=== PATIENT | female | born 1995 | race Caucasian/White ===

== ENCOUNTER 2018-12-18 18:31 | Observation (INO) | payer OTHER ==
--- NOTE | 2018-12-18 19:33 | C.PDOC ---
History Of Present Illness Patient is a 23 year old female, with a PMHx of asthma, crohn's disease on humira, and c. diff, last abx were 2 week ago, who presents to the ED for intermittent fevers and watery stool for the past 7 days. Patient also notes epigastric abdominal pain and notes she was sent by her gastroenterolgist Dr. Potts for further evaluation and workup. She notes epigastric abdominal pain is a throbbing. She denies any nausea, vomiting, chills, night sweats, cough, cold, congestion, rash, neck stiffness, headaches, urinary symptoms, or vaginal discharge. Time Seen by Provider: 12/18/18 19:28 Chief Complaint (Nursing): Abdominal Pain History Per: Patient History/Exam Limitations: no limitations Onset/Duration Of Symptoms: Days (2) Current Symptoms Are (Timing): Still Present Location Of Pain/Discomfort: Epigastric Associated Symptoms: Fever, Diarrhea Recent travel outside of the [place]: No Additional History Per: Patient Past Medical History Reviewed: Historical Data, Nursing Documentation, Vital Signs Vital Signs: Last Vital Signs Temp 98.4 F 12/18/18 18:33 Pulse 92 H 12/18/18 18:33 Resp 18 12/18/18 18:33 BP 127/82 12/18/18 18:33 Pulse Ox 99 12/18/18 18:33 - Medical History PMH: Asthma, Crohn's Disease Surgical History: No Surg Hx Family History: States: No Known Family Hx - Social History Hx Alcohol Use: No Hx Substance Use: No - Immunization History Hx Tetanus Toxoid Vaccination: No Hx Influenza Vaccination: Yes Review Of Systems Constitutional: Positive for: Fever. Negative for: Chills, Sweats, Weakness Eyes: Negative for: Pain, Conjunctivae Inflammation ENT: Negative for: Ear Pain, Ear Discharge, Nose Congestion, Mouth Swelling, Throat Pain Cardiovascular: Negative for: Chest Pain Respiratory: Negative for: Cough Gastrointestinal: Positive for: Abdominal Pain (epigastric ), Diarrhea. Negative for: Nausea, Vomiting, Constipation, Melena Genitourinary: Negative for: Dysuria, Frequency, Hematuria, Vaginal Discharge Musculoskeletal: Negative for: Neck Pain (stiffness) Skin: Negative for: Rash Neurological: Negative for: Headache Physical Exam - Physical Exam Appears: Well, Non-toxic, No Acute Distress Skin: Warm, Dry Head: Normacephalic Eye(s): bilateral: Normal Inspection, PERRL, EOMI Ear(s): Bilateral: Normal Nose: Normal Oral Mucosa: Moist Tongue: Normal Appearing Lips: Normal Appearing Teeth: Normal Dentition Gingiva: Normal Appearing Throat: Normal, No Erythema, No Exudate Neck: Trachea Midline, Supple, Other (no meningeal signs) Chest: Symmetrical Cardiovascular: Rhythm Regular, No Friction Rub Respiratory: No Rales, No Rhonchi, No Wheezing Gastrointestinal/Abdominal: Soft, Tenderness (epigastric), No Distention Back: Normal Inspection, No CVA Tenderness, No Vertebral Tenderness Extremity: Normal ROM, No Tenderness, No Pedal Edema, No Calf Tenderness, No Swelling Extremity: Bilateral: Normal Color And Temperature Pulses: Left Dorsalis Pedis: Normal, Right Dorsalis Pedis: Normal Neurological/Psych: Oriented x3, Normal Speech, Normal Cognition Gait: Steady ED Course And Treatment - Laboratory Results Result Diagrams: 12/18/18 20:23 12/18/18 20:23 O2 Sat by Pulse Oximetry: 99 (on RA) Pulse Ox Interpretation: Normal Medical Decision Making Medical Decision Making: Patient is a 23 year old female, with a PMHx of asthma, crohn's disease, and c. diff, last abx were 1 week ago, who presents to the ED for intermittent fevers and watery stool for the past 2 days. Epigastic abdominal pain without RUQ pain in the setting of crohns warrants CT. No dark or bloody stool. Plan: CAT A&P VBG EKG Labs CXR Urinalysis Impression: pancreatitis vs crohn's flare 1153 labs largely unremarkable no fever in ED CT w/ mild enteritis, no fistula tract noted or colitis. consulted Connor fellow on for dr. Potts: to see in AM, to be placed in obs Consulted Dr. Daniel for admission: to obs to his service pt in NAD, stable for obs admission Disposition - Disposition Disposition Time: 23:53 Condition: STABLE - Clinical Impression Clinical Impression: Enteritis - Scribe Statement The provider has reviewed the documentation as recorded by the Shankar Hodge All medical record entries made by the Yobaniibcat were at my direction and personally dictated by me. I have reviewed the chart and agree that the record accurately reflects my personal performance of the history, physical exam, medical decision making, and the department course for this patient. I have also personally directed, reviewed, and agree with the discharge instructions and disposition.
[2018-12-18 20:30] LABS: BASO # 0.1 K/uL (0.0-0.2); EOS % 0.5 % (0.0-4.0); HEMOGLOBIN 12.3 g/dL (11.0-16.0); LYMPH # 2.6 K/uL (1.0-4.3); MEAN CELL VOLUME 81.6 fL (81.0-99.0); MEAN CORPUSCULAR HEMOGLOBIN 26.9 pg (27.0-31.0); MEAN PLATELET VOLUME 8.1 fL (7.2-11.7); MONO # 0.8 K/uL (0.0-0.8); MONO % 10.5 % (0.0-10.0); NEUT # 4.1 K/uL (1.8-7.0); RBC 4.59 Mil/uL (3.80-5.20); WHITE BLOOD COUNT 7.6 K/uL (4.8-10.8)
[2018-12-18 20:33] LABS: VENOUS BLOOD GAS BASE EXCESS -2.2 mmol/L (0.0-2.0); VENOUS BLOOD GAS PCO2 37 mmHg (40-60); VENOUS BLOOD GAS PO2 25 mm/Hg (30-55); VENOUS BLOOD PH 7.39 (7.32-7.43)
[2018-12-18 20:43] LABS: ALB/GLOB RATIO 1.4 (1.0-2.1); ALBUMIN 4.6 g/dL (3.5-5.0); BLOOD UREA NITROGEN 14 mg/dL (7-17); CALCIUM 9.7 mg/dl (8.6-10.4); GFR NON-AFRICAN AMERICAN > 60
[2018-12-18 20:44] LABS: ALT/SGPT 17 U/L (9-52); AST/SGOT 47 U/L (14-36)
[2018-12-18] MEDS ORDERED: Iohexol 300 100 ML IJ ONE (21:13)
[2018-12-18] MEDS ORDERED: Sodium Chloride 0.9% 1,000 ML IV ONE (23:13)
[2018-12-18 23:45] LABS: SQUAMOUS EPITHIAL 6 /hpf (0-5); URINE BACTERIA RARE (<OCC); URINE BILIRUBIN NEGATIVE (NEGATIVE); URINE BLOOD NEGATIVE (NEGATIVE); URINE CLARITY Hazy (Clear); URINE COLOR Yellow (YELLOW); URINE GLUCOSE (UA) NORMAL (Normal); URINE LEUKOCYTE ESTERASE NEG Leu/uL (Negative); URINE PROTEIN 1+ mg/dL (NEGATIVE); URINE UROBILINOGEN NORMAL mg/dL (0.2-1.0)
[2018-12-18] MEDS ORDERED: Sodium Chloride 0.9% 1,000 ML ONE (23:57)
[2018-12-18] MEDS ORDERED: Morphine 4 MG/ML VIAL ONE (23:57)
[2018-12-19] MEDS ORDERED: Home Med 1 UNIT (Acetaminophen [Tylenol] 650 MG) PO PRN (00:11)
[2018-12-19] MEDS ORDERED: HYDROmorphone 1 mg/ml ISec IVP PRN (00:19)
[2018-12-19] MEDS: metroNIDAZOLE IV 500 mg/100 ml 500 MG/100 ML BAG IVPB SCH ×3 (00:40→16:55)
[2018-12-19] MEDS ORDERED: metroNIDAZOLE IV 500 mg/100 ml 500 MG/100 ML BAG ONE (00:54)
[2018-12-19] MEDS: Ciprofloxacin 400mg/200ml D5W 400 MG/200 ML BAG IVPB SCH ×2 (01:58→12:18)
[2018-12-19] MEDS ORDERED: Ciprofloxacin 400mg/200ml D5W 400 MG/200 ML BAG IVPB ONE (02:05)
--- NOTE | 2018-12-19 07:48 | CP.PCM.PN ---
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 Patient states she was sent by her GI doctor (Dr. Potts). NO overnight events reported. Patient did report some abdominal pain and loose stool today. She also states that she has to strain when urinating. She denies any blood in the stool or melena. Patient denies any fevers, chills, Chest pain, SOB, nausea or vomiting. Patient continued to ask for dilaudid for abdominal pain although she resting comfortable in bed. Patient is suspicious f or med-seeking behavior. Objective - Vital Signs/Intake and Output Vital Signs (last 24 hours): Temp Pulse Resp BP Pulse Ox 98.7 F 90 18 91/58 L 99 12/19/18 06:10 12/19/18 06:10 12/19/18 06:10 12/19/18 06:10 12/19/18 06:10 - Medications Medications: Current Medications Duloxetine HCl (Cymbalta) 20 mg PO DAILY [facility] Gabapentin (Neurontin) 300 mg PO BID [facility] Home Med (Acetaminophen [Tylenol]) 650 mg PO Q4 PRN PRN Reason: Fever >100.4 F Home Med (Adalimumab [Humira]) 40 mg SC QWK [facility] Home Med (Telmisartan [Telmisartan]) 20 mg PO DAILY [facility] Hydromorphone HCl (Dilaudid) 1 mg IVP Q4H PRN PRN Reason: Pain, moderate (4-7) Last Admin: 12/19/18 04:16 Dose: 1 mg Ciprofloxacin (Cipro 400mg/200ml Dsw) 400 mg in 200 mls @ 133 mls/hr IVPB Q12H [facility]; Protocol Last Admin: 12/19/18 01:58 Dose: 133 mls/hr Metronidazole (Flagyl) 500 mg in 100 mls @ 100 mls/hr IVPB Q8H [facility]; Protocol Last Admin: 12/19/18 00:40 Dose: 100 mls/hr Sodium Chloride (Sodium Chloride 0.9%) 1,000 mls @ 100 mls/hr IV .Q10H [facility] Pantoprazole Sodium (Protonix Ec Tab) 40 mg PO DAILY [facility] Prochlorperazine Edisylate (Compazine) 5 mg PO PRN PRN PRN Reason: Nausea/Vomiting - Labs Labs: 12/18/18 20:23 12/18/18 20:23 - Constitutional Appears: Well, Non-toxic, No Acute Distress - Head Exam Head Exam: ATRAUMATIC, NORMAL INSPECTION, NORMOCEPHALIC - Eye Exam Eye Exam: EOMI. absent: Scleral icterus - ENT Exam ENT Exam: Mucous Membranes Moist - Respiratory Exam Respiratory Exam: Clear to Ausculation Bilateral, NORMAL BREATHING PATTERN. absent: Accessory Muscle Use - Cardiovascular Exam Cardiovascular Exam: RRR, +S1, +S2 - GI/Abdominal Exam GI & Abdominal Exam: Soft, Tenderness (RLQ/LLQ (Mild) ), Normal Bowel Sounds. absent: Distended, Firm, Guarding, Rigid, Rebound - Extremities Exam Extremities Exam: Normal Capillary Refill. 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 Plan: Diarrhea/Abd Pain/Fevers/Crohns Ddx: Crohns Flare, C.Fiff, IBS Consults Gastroenterology(Dr. Nancy Potts), Recs Appreciated Labs: Stool Studies, F/U Mgmt: Metronidazole 500mg IVP Q8H Ciprofloxacin 400mg Q12 IVP NS @ 100mls/hr Tylenol PRN for Fever Tramadol 25mg PO TID PRN (Avoid heavy narcotics) Compazine 5mg PO TID PRN Diflucan 200mg QFridays Humira [id number](On Tuesday) CLD, Advanced as Tolerated. Blood in Stool Patient stated she noticed Bright Red Blood in stool Monitor H/H Labs: Stool Occult Blood Ordered Difficult Urinating Renal/Bladder US - Ordered & PENDING Asthma (Chronic) Mgmt: Cont. Home Meds Symbicort Not in Formulary Start BreoElipta 1 puff Daily Spiriva 18mcg RQD Uveitis Mgmt: Cont. Home Meds Pred Forte OS QID HTN Hold Home Meds due to low BP Hx of Depression/Insomnia/Psych Mgmt: COnt. Home Meds Duloxetine 20mg PO Daily Trazodone 200mg HS [facility] Clonazepam 0.5mg HS (Held, Patient can sleep without it) Proph Protonix NS SCDs CLD Patient seen and discussed with Attending Diana Oquendo, PGY-2
--- NOTE | 2018-12-19 08:58 | RAD ---
Date of service: 12/18/2018 HISTORY: fevers COMPARISON: No prior. TECHNIQUE: Chest PA and lateral views FINDINGS: LUNGS: No active pulmonary disease. PLEURA: No significant pleural effusion identified. No pneumothorax apparent. CARDIOVASCULAR: No aortic atherosclerotic calcification present. Normal cardiac size. No pulmonary vascular congestion. OSSEOUS STRUCTURES: No significant abnormalities. VISUALIZED UPPER ABDOMEN: Normal. OTHER FINDINGS: None. IMPRESSION: No active disease.
[2018-12-19] MEDS ORDERED: ADALIMUMAB 40 MG SC SCH ×2 (10:00)
--- NOTE | 2018-12-19 10:26 | CT ---
Date of service: 12/18/2018 PROCEDURE: CT Abdomen and Pelvis with contrast HISTORY: abd pain COMPARISON: None available. TECHNIQUE: Contrast dose: 100 mL Omnipaque 300 IV Radiation dose: Total exam DLP = 421.34 mGy-cm. This CT exam was performed using one or more of the following dose reduction techniques: Automated exposure control, adjustment of the mA and/or kV according to patient size, and/or use of iterative reconstruction technique. FINDINGS: LOWER THORAX: No visible consolidation, pleural effusion, or pneumothorax. LIVER: Unremarkable. GALLBLADDER AND BILE DUCTS: Unremarkable. PANCREAS: Unremarkable. SPLEEN: Unremarkable. ADRENALS: Unremarkable. KIDNEYS AND URETERS: The kidneys enhance symmetrically. No hydronephrosis or obstructing calculus identified. VASCULATURE: No aortic aneurysm. No atherosclerotic calcification or mural plaque present. BOWEL: Stomach is nondistended. Mild gastric wall thickening may be exaggerated by under distension; correlate clinically for gastritis. Lack of oral contrast limits evaluation for bowel pathology. Bowel loops appear within normal limits of caliber without evidence of obstruction. Mild wall thickening of the transverse colon may be exaggerated by under distension or a site of spasm; alternatives such as colitis not excluded; correlate clinically. Mild to moderate constipation. APPENDIX: The presumed appendix appears within normal limits of caliber. No secondary signs of acute appendicitis. PERITONEUM: No significant free fluid. No definite free air. LYMPH NODES: No bulky adenopathy identified. BLADDER: Unremarkable. REPRODUCTIVE: The uterus is present. BONES: No acute osseous abnormality is detected. OTHER FINDINGS: None. IMPRESSION: Mild focal wall thickening/narrowing the transverse colon may be exaggerated by under distension or a site of spasm; alternatives such as colitis and neoplasm (considered less likely) not excluded; correlate clinically and follow-up as indicated. Mild gastric wall thickening may be exaggerated by under distension; correlate clinically for possibility of gastritis. [id number] constipation. Preliminary impression was provided by [employer]. Study marked for PA review.
[2018-12-19] MEDS: Pantoprazole 40 mg EC Tab PO SCH (10:34)
[2018-12-19 11:09] LABS: BASO % 0.5 % (0.0-2.0); EOS # 0.1 K/uL (0.0-0.7); EOS % 1.4 % (0.0-4.0); HEMOGLOBIN 11.5 g/dL (11.0-16.0); LYMPH # 2.4 K/uL (1.0-4.3); LYMPH % 44.7 % (20.0-40.0); MEAN CELL VOLUME 81.7 fL (81.0-99.0); MEAN CORPUSCULAR HEMOGLOBIN 27.1 pg (27.0-31.0); MEAN CORPUSCULAR HGB CONC 33.2 g/dL (33.0-37.0); MEAN PLATELET VOLUME 8.3 fL (7.2-11.7); MONO # 0.7 K/uL (0.0-0.8); MONO % 13.3 % (0.0-10.0); NEUT # 2.2 K/uL (1.8-7.0); NEUT % 40.1 % (50.0-75.0); NRBC % 0.1 % (0.0-2.0); RBC 4.23 Mil/uL (3.80-5.20); WHITE BLOOD COUNT 5.4 K/uL (4.8-10.8)
[2018-12-19 11:28] LABS: ALB/GLOB RATIO 1.4 (1.0-2.1); ALBUMIN 3.9 g/dL (3.5-5.0); ALT/SGPT 21 U/L (9-52); AST/SGOT 24 U/L (14-36); BLOOD UREA NITROGEN 11 mg/dL (7-17); CALCIUM 9.2 mg/dl (8.6-10.4); GFR NON-AFRICAN AMERICAN > 60; LIPASE 83 U/L (23-300)
[2018-12-19] MEDS: Tramadol 25 mg PO PRN (14:43)
[2018-12-19] MEDS: PrednisoLONE 1% Opht Susp(5 ml) OS SCH ×3 (14:45→22:45)
[2018-12-19] MEDS: Sodium Chloride 0.9% 1,000 ML IV SCH ×2 (15:00→22:03)
--- NOTE | 2018-12-19 15:21 | CP.PCM.CON ---
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 Describes left lower abdominal pain with endorsed over 15 semi-liquid stools since 12/09/18. Notes chnge to watery stools on 12/16/18 with watery stools with BRBPR and mucus on wiping since 12/09/18. States on Tuesday, 12/18 had temperature of 103 but states she had a fever for at least five days and taking tylenol 2-4 times a day daily since. Last watery stool at 5AM this morning. Patient notes use of celexocib daily and Dilaudid 2 to 4mg for the last three days due to abdominal pain. Noted to have chronic abdominal pain for which she follows with pain management for the last two months and endorses oxycodone use. Recent antibiotic use of ceftin started on 10/01/18 for 10 days for respiratory infection. Patient completed vancomycin 150mg daily Cdiff prophylaxis during antibiotic course. Last Cdiff episode in 08/2018 for which she endorses noncompliance to antibiotic therapy and completion of only 7 out of ten day antibiotic course. Patient recently returned from [place], on 12/17 after visiting family. She associates three out of five Cdiff episodes to occur after visiting family in [place]. Follows with IBD specialist, Dr. Chaney at [place], last office visit beginning of November 2018 with plan to continue Humira every other week and to discuss potentially discontinuing Humira as there was a concern it may be causing her optic neuritis. Takes Protonix daily and Compazine PRN for nausea. Last office visit with established GI, Dr. Potts, last Tuesday (12/12) and was given cholestyramine powder 4g BID trial, PPI BID, and Compazine PRN as recommended that watery stools unlikely to be C. difficile as she was on C. difficile prophylaxis while on antibiotics (C. difficile not checked). Likely related to IBS and less likely to be a true IBD flare/Cdiff episode. In addition, [place] ER visit on 12/06/18 due to frequent bowel movements and had GI pathogen panel tested which was completely negative. ESR 44. abdominal xray 03/2018-- large stool EGD 09/15/18 - normal esophagus, H. pylori negative gastritis, normal duodenum Colonoscopy 09/2017- Colonoscopy for FMT 04/13/18 - TI normal- biopsy with no inflammation, small superficial anal fissure, entire colon normal endoscopically Capsule endoscopy 07/07/18 normal. Flexible sigmoidoscopy 09/05/18 -patchy rectal erythema- likely enema induced- negative for inflammation/dysplasia on sigmoid/rectal biopsies - started on mesalamine enemas with bowel movement improved to one daily stool in 08/2018. 05/15/18 and 08/31/18 fecal calprotection <27.1 Review of Systems - Review of Systems Review of Systems: 12-point review of systems negative except for as above Past Patient History - Past Social History Smoking Status: Never Smoked - PULMONARY Hx Asthma: Yes - GASTROINTESTINAL Hx Crohn's Disease: Yes - PSYCHIATRIC Hx Substance Use: No - SURGICAL HISTORY Hx Surgeries: Yes Other/Comment: SPHINCTERECTOMY, FISSUROTOMY Meds Allergies/Adverse Reactions: Allergies Allergy/AdvReac Type Severity Reaction Status Date / Time No Known Allergies Allergy Verified 12/18/18 18:37 - Medications Medications: Current Medications Acetaminophen (Tylenol 325mg Tab) 650 mg PO Q4H PRN PRN Reason: Fever >100.4 F Duloxetine HCl (Cymbalta) 20 mg PO DAILY [facility] Last Admin: 12/19/18 10:34 Dose: 20 mg Fluconazole (Diflucan) 200 mg PO QWK [facility]; Protocol Fluticasone/Vilanterol (Breo Ellipta 100-25 Mcg Inh) 1 puff INH RQD [facility] Gabapentin (Neurontin) 300 mg PO BID [facility] Last Admin: 12/19/18 10:34 Dose: 300 mg Home Med (Adalimumab [Humira]) 40 mg SC QWK [facility] Ciprofloxacin (Cipro 400mg/200ml Dsw) 400 mg in 200 mls @ 133 mls/hr IVPB Q12H [facility]; Protocol Last Admin: 12/19/18 12:18 Dose: 133 mls/hr Metronidazole (Flagyl) 500 mg in 100 mls @ 100 mls/hr IVPB Q8H [facility]; Protocol Last Admin: 12/19/18 10:34 Dose: 100 mls/hr Sodium Chloride (Sodium Chloride 0.9%) 1,000 mls @ 100 mls/hr IV .Q10H [facility] Losartan Potassium (Cozaar) 25 mg PO DAILY [facility] Last Admin: 12/19/18 09:47 Dose: Not Given Pantoprazole Sodium (Protonix Ec Tab) 40 mg PO DAILY [facility] Last Admin: 12/19/18 10:34 Dose: 40 mg Prednisolone Acetate (Pred Forte 1% Opht Susp) 0 ml OS QID [facility] Last Admin: 12/19/18 14:45 Dose: 1 drop Prochlorperazine (Compazine Tab) 5 mg PO TID PRN Last Admin: 12/19/18 10:34 Dose: 5 mg Tiotropium [place] (Spiriva) 18 mcg INH RQD [facility] Tramadol HCl (Ultram) 25 mg PO TID PRN PRN Reason: Pain Mild-Severe (1-10) Last Admin: 12/19/18 14:43 Dose: 25 mg Trazodone HCl (Desyrel) 200 mg PO HS [facility] Physical Exam - Constitutional Appears: Non-toxic, No Acute Distress - Head Exam Head Exam: ATRAUMATIC, NORMOCEPHALIC - Eye Exam Eye Exam: EOMI, PERRL. absent: Scleral icterus Pupil Exam: PERRL. absent: Miosis, Mydriatic - ENT Exam ENT Exam: Mucous Membranes Moist, Normal Oropharynx - Neck Exam Neck exam: Positive for: Full Rom, Normal Inspection - Respiratory Exam Respiratory Exam: Clear to Auscultation Bilateral. absent: Rales, Rhonchi, Wheezes - Cardiovascular Exam Cardiovascular Exam: RRR, +S1, +S2. absent: Gallop, Rubs - GI/Abdominal Exam GI & Abdominal Exam: Normal Bowel Sounds, Soft, Tenderness. absent: Distended, Firm, Guarding, Organomegaly, Rebound, Rigid Additional comments: B/L LQ tenderness to palpation - Extremities Exam Extremities exam: Positive for: normal inspection. Negative for: pedal edema - Neurological Exam Neurological exam: Alert - Psychiatric Exam Psychiatric exam: Normal Affect, Normal Mood - Skin Skin Exam: Dry, Intact, Normal Color, Warm Results - Vital Signs Recent Vital Signs: Last Vital Signs Temp 98.1 F 12/19/18 13:10 Pulse 64 12/19/18 13:10 Resp 18 12/19/18 13:10 BP 115/76 12/19/18 13:10 Pulse Ox 100 12/19/18 13:10 - Labs Result Diagrams: 12/19/18 11:04 12/19/18 11:04 Labs: Laboratory Results - last 24 hr 12/18/18 12/18/18 12/18/18 20:23 20:23 20:25 WBC 7.6 RBC 4.59 Hgb 12.3 Hct 37.5 MCV 81.6 MCH 26.9 L MCHC 33.0 RDW 15.0 H Plt Count 348 MPV 8.1 Neut % (Auto) 54.0 Lymph % (Auto) 34.0 [place] % (Auto) 10.5 H Eos % (Auto) 0.5 Baso % (Auto) 1.0 Neut # (Auto) 4.1 Lymph # (Auto) 2.6 [place] # (Auto) 0.8 Eos # (Auto) 0.0 Baso # (Auto) 0.1 pO2 25 L VBG pH 7.39 VBG pCO2 37 L VBG HCO3 21.8 VBG Total CO2 23.5 VBG O2 Sat (Calc) 46.9 VBG Base Excess -2.2 L VBG Potassium 3.6 Glucose 87 Lactate 0.8 Sodium 136 140.0 Potassium 4.3 Chloride 105 110.0 H Carbon Dioxide 23 Anion Gap 11 BUN 14 Creatinine 0.6 L Est GFR ( Amer) > 60 Est GFR (Non-Af Amer) > 60 Random Glucose 101 Calcium 9.7 Phosphorus Magnesium Total Bilirubin 0.6 AST 47 H ALT 17 Alkaline Phosphatase 43 Total Protein 7.9 Albumin 4.6 Globulin 3.3 Albumin/Globulin Ratio 1.4 Lipase Beta HCG, Quant Venous Blood Potassium 3.6 Urine Color Urine Clarity Urine pH Ur Specific [place] Urine Protein Urine Glucose (UA) Urine Ketones Urine Blood Urine Nitrate Urine Bilirubin Urine Urobilinogen Ur Leukocyte Esterase Urine WBC (Auto) Urine RBC (Auto) Ur Squamous Epith Cells Urine Bacteria 12/18/18 12/18/18 12/19/18 20:32 23:27 11:04 WBC 5.4 RBC 4.23 Hgb 11.5 Hct 34.5 MCV 81.7 MCH 27.1 MCHC 33.2 RDW 15.0 H Plt Count 292 MPV 8.3 Neut % (Auto) 40.1 L Lymph % (Auto) 44.7 H [place] % (Auto) 13.3 H Eos % (Auto) 1.4 Baso % (Auto) 0.5 Neut # (Auto) 2.2 Lymph # (Auto) 2.4 [place] # (Auto) 0.7 Eos # (Auto) 0.1 Baso # (Auto) 0.0 pO2 VBG pH VBG pCO2 VBG HCO3 VBG Total CO2 VBG O2 Sat (Calc) VBG Base Excess VBG Potassium Glucose Lactate Sodium Potassium Chloride Carbon Dioxide Anion Gap BUN Creatinine Est GFR ( Amer) Est GFR (Non-Af Amer) Random Glucose Calcium Phosphorus Magnesium Total Bilirubin AST ALT Alkaline Phosphatase Total Protein Albumin Globulin Albumin/Globulin Ratio Lipase Beta HCG, Quant < 2.39 Venous Blood Potassium Urine Color Yellow Urine Clarity Hazy Urine pH 5.0 Ur Specific [place] > 1.060 H Urine Protein 1+ H Urine Glucose (UA) Normal Urine Ketones Negative Urine Blood Negative Urine Nitrate Negative Urine Bilirubin Negative Urine Urobilinogen Normal Ur Leukocyte Esterase Neg Urine WBC (Auto) 4 Urine RBC (Auto) 2 Ur Squamous Epith Cells 6 H Urine Bacteria Rare 12/19/18 11:04 WBC RBC Hgb Hct MCV MCH MCHC RDW Plt Count MPV Neut % (Auto) Lymph % (Auto) [place] % (Auto) Eos % (Auto) Baso % (Auto) Neut # (Auto) Lymph # (Auto) [place] # (Auto) Eos # (Auto) Baso # (Auto) pO2 VBG pH VBG pCO2 VBG HCO3 VBG Total CO2 VBG O2 Sat (Calc) VBG Base Excess VBG Potassium Glucose Lactate Sodium 138 Potassium 3.7 Chloride 106 Carbon Dioxide 26 Anion Gap 10 BUN 11 Creatinine 0.7 Est GFR ( Amer) > 60 Est GFR (Non-Af Amer) > 60 Random Glucose 90 Calcium 9.2 Phosphorus 4.0 Magnesium 1.9 Total Bilirubin 0.3 AST 24 ALT 21 Alkaline Phosphatase 43 Total Protein 6.7 Albumin 3.9 Globulin 2.8 Albumin/Globulin Ratio 1.4 Lipase 83 Beta HCG, Quant Venous Blood Potassium Urine Color Urine Clarity Urine pH Ur Specific [place] Urine Protein Urine Glucose (UA) Urine Ketones Urine Blood Urine Nitrate Urine Bilirubin Urine Urobilinogen Ur Leukocyte Esterase Urine WBC (Auto) Urine RBC (Auto) Ur Squamous Epith Cells Urine Bacteria Assessment & Plan - Assessment and Plan (Free Text) Assessment: 23 year old female with PMH of Crohn's ileitis on Humira diagnosed 2013 (started 07/2017, missed last dose 12/15/18), 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 CT A/P IV contrast showing constipation and possible thickening of stomach and transverse colon versus under-distension with lack of oral contrast. EGD 09/15/18 - normal esophagus, H. pylori negative gastritis, normal duodenum Colonoscopy for FMT 04/13/18 - TI normal- biopsy with no inflammation, small superficial anal fissure, entire colon normal endoscopically Capsule endoscopy 07/07/18 normal. Flexible sigmoidoscopy 09/05/18 -patchy rectal erythema- likely enema induced- negative for inflammation/dysplasia on sigmoid/rectal biopsies - started on mesalamine enemas with bowel movement improved to one daily stool in 08/2018. 05/15/18 and 08/31/18 fecal calprotection <27.1 Plan: -low suspicion for infectious diarrhea -afebrile, no leukocytosis -recent stool workup 12/06 during [place] ER visit for frequent stools- negative, ESR 44 -complete stool workup -pending Cdiff, stool culture, O&P -discontinue cipro/flagyl -advance to bland diet -start Citrucel -follow up ESR and CRP -avoid narcotics -will follow clinical course -follows with IBD specialist, Dr. Chaney at [place], last seen beginning of November 2018- Humira every other week -to discuss potentially discontinuing Humira as there was a concern it may be causing her optic neuritis -follows with GI, Dr. Potts, last seen 12/12/18- trial cholestyramine powder 4g BID trial, PPI BID, and Compazine PRN -unlikely C. difficile, completed C. difficile prophylaxis while on ceftin antibiotics 09/2018 for URI -likely related to IBS and less likely to be a true IBD flare/C. diff episode <Nancy Potts - Last Filed: 12/19/18 19:39> Meds - Medications Medications: Current Medications Acetaminophen (Tylenol 325mg Tab) 650 mg PO Q4H PRN PRN Reason: Fever >100.4 F Duloxetine HCl (Cymbalta) 20 mg PO DAILY [facility] Last Admin: 12/19/18 10:34 Dose: 20 mg Fluconazole (Diflucan) 200 mg PO QWK [facility]; Protocol Fluticasone/Vilanterol (Breo Ellipta 100-25 Mcg Inh) 1 puff INH RQD [facility] Last Admin: 12/19/18 17:53 Dose: Not Given Gabapentin (Neurontin) 300 mg PO BID [facility] Last Admin: 12/19/18 17:50 Dose: 300 mg Home Med (Adalimumab [Humira]) 40 mg SC QWK [facility] Sodium Chloride (Sodium Chloride 0.9%) 1,000 mls @ 100 mls/hr IV .Q10H [facility] Last Admin: 12/19/18 15:00 Dose: 100 mls/hr Losartan Potassium (Cozaar) 25 mg PO DAILY [facility] Last Admin: 12/19/18 09:47 Dose: Not Given Pantoprazole Sodium (Protonix Ec Tab) 40 mg PO DAILY [facility] Last Admin: 12/19/18 10:34 Dose: 40 mg Prednisolone Acetate (Pred Forte 1% Opht Susp) 0 ml OS QID [facility] Last Admin: 12/19/18 17:51 Dose: 1 drop Prochlorperazine (Compazine Tab) 5 mg PO TID PRN Last Admin: 12/19/18 10:34 Dose: 5 mg Psyllium Hydrophilic Mucilloid (Hydrocil Instant) 1 pkt PO BID [facility] Tiotropium [place] (Spiriva) 18 mcg INH RQD [facility] Tramadol HCl (Ultram) 25 mg PO TID PRN PRN Reason: Pain Mild-Severe (1-10) Last Admin: 12/19/18 14:43 Dose: 25 mg Trazodone HCl (Desyrel) 200 mg PO HS [facility] Results - Vital Signs Recent Vital Signs: Last Vital Signs Temp 97.9 F 12/19/18 15:25 Pulse 72 12/19/18 15:25 Resp 18 12/19/18 15:25 BP 108/71 12/19/18 15:25 Pulse Ox 96 12/19/18 15:25 - Labs Result Diagrams: 12/19/18 11:04 12/19/18 11:04 Labs: Laboratory Results - last 24 hr 12/18/18 12/18/18 12/18/18 20:23 20:23 20:25 WBC 7.6 RBC 4.59 Hgb 12.3 Hct 37.5 MCV 81.6 MCH 26.9 L MCHC 33.0 RDW 15.0 H Plt Count 348 MPV 8.1 Neut % (Auto) 54.0 Lymph % (Auto) 34.0 [place] % (Auto) 10.5 H Eos % (Auto) 0.5 Baso % (Auto) 1.0 Neut # (Auto) 4.1 Lymph # (Auto) 2.6 [place] # (Auto) 0.8 Eos # (Auto) 0.0 Baso # (Auto) 0.1 pO2 25 L VBG pH 7.39 VBG pCO2 37 L VBG HCO3 21.8 VBG Total CO2 23.5 VBG O2 Sat (Calc) 46.9 VBG Base Excess -2.2 L VBG Potassium 3.6 Glucose 87 Lactate 0.8 Sodium 136 140.0 Potassium 4.3 Chloride 105 110.0 H Carbon Dioxide 23 Anion Gap 11 BUN 14 Creatinine 0.6 L Est GFR ( Amer) > 60 Est GFR (Non-Af Amer) > 60 Random Glucose 101 Calcium 9.7 Phosphorus Magnesium Total Bilirubin 0.6 AST 47 H ALT 17 Alkaline Phosphatase 43 Total Protein 7.9 Albumin 4.6 Globulin 3.3 Albumin/Globulin Ratio 1.4 Lipase Beta HCG, Quant Venous Blood Potassium 3.6 Urine Color Urine Clarity Urine pH Ur Specific [place] Urine Protein Urine Glucose (UA) Urine Ketones Urine Blood Urine Nitrate Urine Bilirubin Urine Urobilinogen Ur Leukocyte Esterase Urine WBC (Auto) Urine RBC (Auto) Ur Squamous Epith Cells Urine Bacteria 12/18/18 12/18/18 12/19/18 20:32 23:27 11:04 WBC 5.4 RBC 4.23 Hgb 11.5 Hct 34.5 MCV 81.7 MCH 27.1 MCHC 33.2 RDW 15.0 H Plt Count 292 MPV 8.3 Neut % (Auto) 40.1 L Lymph % (Auto) 44.7 H [place] % (Auto) 13.3 H Eos % (Auto) 1.4 Baso % (Auto) 0.5 Neut # (Auto) 2.2 Lymph # (Auto) 2.4 [place] # (Auto) 0.7 Eos # (Auto) 0.1 Baso # (Auto) 0.0 pO2 VBG pH VBG pCO2 VBG HCO3 VBG Total CO2 VBG O2 Sat (Calc) VBG Base Excess VBG Potassium Glucose Lactate Sodium Potassium Chloride Carbon Dioxide Anion Gap BUN Creatinine Est GFR ( Amer) Est GFR (Non-Af Amer) Random Glucose Calcium Phosphorus Magnesium Total Bilirubin AST ALT Alkaline Phosphatase Total Protein Albumin Globulin Albumin/Globulin Ratio Lipase Beta HCG, Quant < 2.39 Venous Blood Potassium Urine Color Yellow Urine Clarity Hazy Urine pH 5.0 Ur Specific [place] > 1.060 H Urine Protein 1+ H Urine Glucose (UA) Normal Urine Ketones Negative Urine Blood Negative Urine Nitrate Negative Urine Bilirubin Negative Urine Urobilinogen Normal Ur Leukocyte Esterase Neg Urine WBC (Auto) 4 Urine RBC (Auto) 2 Ur Squamous Epith Cells 6 H Urine Bacteria Rare 12/19/18 11:04 WBC RBC Hgb Hct MCV MCH MCHC RDW Plt Count MPV Neut % (Auto) Lymph % (Auto) [place] % (Auto) Eos % (Auto) Baso % (Auto) Neut # (Auto) Lymph # (Auto) [place] # (Auto) Eos # (Auto) Baso # (Auto) pO2 VBG pH VBG pCO2 VBG HCO3 VBG Total CO2 VBG O2 Sat (Calc) VBG Base Excess VBG Potassium Glucose Lactate Sodium 138 Potassium 3.7 Chloride 106 Carbon Dioxide 26 Anion Gap 10 BUN 11 Creatinine 0.7 Est GFR ( Amer) > 60 Est GFR (Non-Af Amer) > 60 Random Glucose 90 Calcium 9.2 Phosphorus 4.0 Magnesium 1.9 Total Bilirubin 0.3 AST 24 ALT 21 Alkaline Phosphatase 43 Total Protein 6.7 Albumin 3.9 Globulin 2.8 Albumin/Globulin Ratio 1.4 Lipase 83 Beta HCG, Quant Venous Blood Potassium Urine Color Urine Clarity Urine pH Ur Specific [place] Urine Protein Urine Glucose (UA) Urine Ketones Urine Blood Urine Nitrate Urine Bilirubin Urine Urobilinogen Ur Leukocyte Esterase Urine WBC (Auto) Urine RBC (Auto) Ur Squamous Epith Cells Urine Bacteria ED Physician Attestation - Attestation I have personally seen and examined this patient.: Yes I have fully participated in the care of the patient.: Yes I have reviewed all pertinent clinical information: Yes Notes (Text): 12/19/18 19:34 I have seen and examined the pt with the GI fellow. 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 Recent visit to [place]. Saw PMD last wk with complaints of fever and had blood cultures and bloodwork done, presumably negative. No fevers here. Started on cipro/flagyl. Had CT abd/pelvis done here which showed some residual stool, but otherwise unremarkable. Abd: soft, nt,nd Plan: -suspect pt's sxs are more IBS rather than true IBD (extensive IBD w/u done in the past has been scattered over multiple hospitals and w/o definitive pathology, though at one point initiation of Humira did alleviate her sxs) -would d/c cipro/flagyl -advance diet -have advised her to document stools -if with repeated diarrhea, check stool cxs, c. diff -start metamucil daily (pt tried cholestyramine and stated it made her nauseous) -NO narcotics -tramadol only
[2018-12-19] MEDS: Fluticasone-Vilanterol 100/25mcg Diskus INH SCH (17:53)
[2018-12-19] MEDS ORDERED: Naloxone 0.4 mg/ml Inj (Adult) ONE (21:41)
[2018-12-19] MEDS ORDERED: Naloxone 0.4 mg/ml Inj (Adult) IVP ONE (21:46)
--- NOTE | 2018-12-19 21:46 | PCM.RRT ---
SURGICAL SERVICES DIRECTOR Nurses Assessment - Situation Date: 12/19/18 Time SURGICAL SERVICES DIRECTOR was called: 09:33 SURGICAL SERVICES DIRECTOR Responder Arrival Time:: 09:35 SURGICAL SERVICES DIRECTOR Location:: Med/Surg SURGICAL SERVICES DIRECTOR Reason for Call: Change in Mental Status SURGICAL SERVICES DIRECTOR Called By: RN - IV IV Inserted during SURGICAL SERVICES DIRECTOR?: No New IV Insertion Tolerance: Good - Respiratory SURGICAL SERVICES DIRECTOR Delivery Method: Room Air Received Nebulizer Treatments: No Was the Patient Ventilated with Bag/Mask 100% O2?: No Secretions Suctioned?: No Was the Patient Intubated?: No Was the Patient Placed on a Ventilator?: No - Diagnostic Test Ordered EKG: No Chest X-Ray: No CT Scan: Yes (CT head) - Stat Labs Ordered SURGICAL SERVICES DIRECTOR Stat Labs Ordered: CBC, BMP SURGICAL SERVICES DIRECTOR Other Labs Ordered: Drug screen, CPR started during SURGICAL SERVICES DIRECTOR?: No - Vital Signs Vital Signs: 116/74 bp, 98 HR, 98.3 temp, 96% SpO2 on RA - Mary Kate Coma Scale Coma Scale Eye Opening: To verbal stimuli Coma Scale Verbal: Oriented - Recommendations 5) SURGICAL SERVICES DIRECTOR Level of Care Recommendations: Remain in current setting - Constitutional Appears: Non-toxic - Head Head Exam: ATRAUMATIC, NORMOCEPHALIC - Eyes Eye Exam: EOMI, PERRL. absent: Normal appearance (Dilated) - Respiratory Exam Respiratory Exam: Clear to Ausculation Bilateral, NORMAL BREATHING PATTERN. absent: Rales, Rhonchi, Wheezes - Cardiovascular Exam Cardiovascular Exam: REGULAR RHYTHM, +S1, +S2 - GI/Abdominal Exam GI & Abdominal Exam: Soft, Normal Bowel Sounds. absent: Guarding, Tenderness, Rebound - Neurological Exam Additional exam: Somnolent but arousable. Follows some commands. Answering some questions. Moving all extremities. - Extremities Exam Extremities Exam: Full ROM, Normal Capillary Refill, Normal Inspection Plan - Assessment of Findings&Treatment Plan SURGICAL SERVICES DIRECTOR called at 9:33pm for change in mental status. Patient was noted by RN to be significantly more drowsy than usual. Vitals 116/74 bp, 96 %spo2 on RA, 98 HR, and temp 98.3 on arrival. Patient somnolent but arousable and answering questions appropriately. Pupils noted to be dilated 5mm. Patient last given Ultram 25mg at 2pm. She also had one visitor today. Patient was given narcan x1 with no change. Blood sugar was 69 and amp of D50 given with slight improvement. Basic labs were drawn along with drug screen. CT head was ordered and showed no acute intracranial abnormality. Vital signs remained stable.
[2018-12-19] MEDS ORDERED: Dextrose 50% SYRINGE Inj (50 ml) IV PRN (22:07)
[2018-12-19] MEDS ORDERED: Glucagon Recombinant 1 mg Inj IM PRN (22:07)
[2018-12-19 22:45] LABS: ALB/GLOB RATIO 1.4 (1.0-2.1); ALBUMIN 3.8 g/dL (3.5-5.0); ALT/SGPT 20 U/L (9-52); AST/SGOT 24 U/L (14-36); BLOOD UREA NITROGEN 10 mg/dL (7-17); CALCIUM 9.1 mg/dl (8.6-10.4); GFR NON-AFRICAN AMERICAN > 60
[2018-12-19] MEDS: Psyllium Packet PO SCH (22:46)
[2018-12-19 22:51] LABS: BASO % 0.5 % (0.0-2.0); EOS # 0.1 K/uL (0.0-0.7); EOS % 0.8 % (0.0-4.0); HEMOGLOBIN 11.8 g/dL (11.0-16.0); LYMPH # 2.9 K/uL (1.0-4.3); LYMPH % 37.4 % (20.0-40.0); MEAN CELL VOLUME 81.2 fL (81.0-99.0); MEAN CORPUSCULAR HEMOGLOBIN 26.1 pg (27.0-31.0); MEAN CORPUSCULAR HGB CONC 32.2 g/dL (33.0-37.0); MEAN PLATELET VOLUME 8.4 fL (7.2-11.7); MONO # 0.7 K/uL (0.0-0.8); MONO % 9.6 % (0.0-10.0); NEUT # 3.9 K/uL (1.8-7.0); NEUT % 51.7 % (50.0-75.0); NRBC % 0.1 % (0.0-2.0); RBC 4.5 Mil/uL (3.80-5.20); RED CELL DISTRIBUTION WIDTH 14.6 % (11.5-14.5); WHITE BLOOD COUNT 7.6 K/uL (4.8-10.8)
[2018-12-20] MEDS: Sodium Chloride 0.9% 1,000 ML IV SCH ×3 (01:23→14:36)
[2018-12-20 02:10] VITALS: RESP 20
--- NOTE | 2018-12-20 06:31 | HP ---
HISTORY OF PRESENT ILLNESS: A 23-year-old female with history of Crohn's disease, recurrent seizures, was admitted to the hospital with chief complaint of weakness, fatigue, tiredness, fever, abdominal pain, came to the ER, advised admission. The patient uses Humira. PHYSICAL EXAMINATION: GENERAL: The patient is awake, alert, and oriented. VITAL SIGNS: Temperature 98, pulse 90. HEENT: Within normal limits. NECK: Supple. CHEST: Symmetrical. HEART: Regular. ABDOMEN: Soft. EXTREMITIES: No edema. IMPRESSION AND PLAN: The patient comes here for colitis. At this point, we will give antibiotics, supportive care. Gadiel Daniel MD
--- NOTE | 2018-12-20 07:05 | CT ---
Date of service: 12/19/2018 PROCEDURE: CT HEAD WITHOUT CONTRAST. HISTORY: acute change in mental status COMPARISON: None available. TECHNIQUE: Axial computed tomography images were obtained through the head/brain without intravenous contrast. Radiation dose: Total exam DLP = 1132.82 mGy-cm. This CT exam was performed using one or more of the following dose reduction techniques: Automated exposure control, adjustment of the mA and/or kV according to patient size, and/or use of iterative reconstruction technique. FINDINGS: HEMORRHAGE: No intracranial hemorrhage. BRAIN: No mass effect or edema. No atrophy or chronic microvascular ischemic changes. VENTRICLES: Unremarkable. No hydrocephalus. CALVARIUM: Unremarkable. PARANASAL SINUSES: Unremarkable as visualized. No significant inflammatory changes. MASTOID AIR CELLS: Unremarkable as visualized. No inflammatory changes. OTHER FINDINGS: None. IMPRESSION: Normal CT of the Head. Preliminary report contains concordant findings was submitted by [facility] Radiology.
[2018-12-20] MEDS: Tiotropium 18 mcg Cap For Inhalation INH SCH (08:20)
[2018-12-20] MEDS: Fluticasone-Vilanterol 100/25mcg Diskus INH SCH (08:20)
--- NOTE | 2018-12-20 08:31 | CP.PCM.PN ---
Subjective - Date & Time of Evaluation Date of Evaluation: 12/20/18 Time of Evaluation: 08:31 - Subjective Subjective: Medicine Progress Note - Dr Daniel's Service Patient seen and examined at bedside. 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 She was given Narcan and D50. Abdominal pain has improved. She states that she doesn't have an appetite today and has not had a bowel movement. Offers no other complaints at this time. Objective - Vital Signs/Intake and Output Vital Signs (last 24 hours): Temp Pulse Resp BP Pulse Ox 98.3 F 74 20 106/70 97 12/19/18 23:00 12/19/18 23:00 12/19/18 23:00 12/19/18 23:00 12/19/18 23:00 Intake and Output: 12/20/18 12/20/18 06:59 18:59 Intake Total 1000 Output Total 550 Balance 450 - Medications Medications: Current Medications Acetaminophen (Tylenol 325mg Tab) 650 mg PO Q4H PRN PRN Reason: Fever >100.4 F Dextrose (Dextrose 50% Inj) 0 ml IV STAT PRN; Protocol PRN Reason: Hypoglycemia Protocol Dextrose (Glutose 15) 0 gm PO ONCE PRN; Protocol PRN Reason: Hypoglycemia Protocol Duloxetine HCl (Cymbalta) 20 mg PO DAILY [facility] Last Admin: 12/19/18 10:34 Dose: 20 mg Fluconazole (Diflucan) 200 mg PO QWK [facility]; Protocol Fluticasone/Vilanterol (Breo Ellipta 100-25 Mcg Inh) 1 puff INH RQD [facility] Last Admin: 12/19/18 17:53 Dose: Not Given Gabapentin (Neurontin) 300 mg PO BID [facility] Last Admin: 12/19/18 17:50 Dose: 300 mg Glucagon (Glucagen Diagnostic Kit) 0 mg IM STAT PRN; Protocol PRN Reason: Hypoglycemia Protocol Home Med (Adalimumab [Humira]) 40 mg SC QWK [facility] Sodium Chloride (Sodium Chloride 0.9%) 1,000 mls @ 100 mls/hr IV .Q10H [facility] Last Admin: 12/20/18 04:37 Dose: Not Given Dextrose (Dextrose 5% In Water 1000 Ml) 1,000 mls @ 0 mls/hr IV .Q0M PRN; Protocol PRN Reason: Hypoglycemia Protocol Losartan Potassium (Cozaar) 25 mg PO DAILY [facility] Last Admin: 12/19/18 09:47 Dose: Not Given Pantoprazole Sodium (Protonix Ec Tab) 40 mg PO DAILY [facility] Last Admin: 12/19/18 10:34 Dose: 40 mg Prednisolone Acetate (Pred Forte 1% Opht Susp) 0 ml OS QID [facility] Last Admin: 12/19/18 22:45 Dose: Not Given Prochlorperazine (Compazine Tab) 5 mg PO TID PRN Last Admin: 12/19/18 10:34 Dose: 5 mg Psyllium Hydrophilic Mucilloid (Hydrocil Instant) 1 pkt PO BID [facility] Last Admin: 12/19/18 22:46 Dose: Not Given Tiotropium [place] (Spiriva) 18 mcg INH RQD [facility] Tramadol HCl (Ultram) 25 mg PO TID PRN PRN Reason: Pain Mild-Severe (1-10) Last Admin: 12/19/18 14:43 Dose: 25 mg Trazodone HCl (Desyrel) 200 mg PO HS [facility] Last Admin: 12/19/18 22:46 Dose: Not Given - Labs Labs: 12/19/18 22:44 12/19/18 22:08 - Additional Findings Additional findings: - Constitutional Appears: Non-toxic, No Acute Distress - Head Exam Head Exam: ATRAUMATIC, NORMOCEPHALIC - Eye Exam Eye Exam: EOMI, PERRL. absent: Scleral icterus Pupil Exam: PERRL. absent: Miosis, Mydriatic - ENT Exam ENT Exam: Mucous Membranes Moist, Normal Oropharynx - Neck Exam Neck Exam: Full ROM, Normal Inspection - Respiratory Exam Respiratory Exam: Clear to Ausculation Bilateral. absent: Rales, Rhonchi, Wheezes - Cardiovascular Exam Cardiovascular Exam: RRR, +S1, +S2. absent: Gallop, Rubs - GI/Abdominal Exam GI & Abdominal Exam: Soft, Normal Bowel Sounds. absent: Distended, Firm, Guarding, Rigid, Tenderness, Organomegaly, Rebound - Extremities Exam Extremities Exam: Normal Inspection. 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 Plan: Diarrhea/Abd Pain/Fevers/Crohns Patient likely with IBS Antibiotics discontinued Continue NS @ 100mls/hr Compazine 5mg PO TID PRN Hydrocil Instant 1 pkt BID Humira [id number](On Tuesday) and Diflucan 200mg QFridays Stool studies ordered, patient has not had a bowel movement since admission Tramadol 25mg PO TID PRN (Avoid heavy narcotics) GI on consult, help appreciated Blood in Stool Patient stated she noticed Bright Red Blood in stool Has not had a bowel movement since admission Monitor H/H Difficult Urinating Renal/Bladder US - Unremarkable renal sonogram Patient was straight cath yesterday Bladder scan prn Asthma (Chronic) Symbicort Not in Formulary, start BreoElipta 1 puff Daily Spiriva 18mcg RQD Uveitis Pred Forte OS QID HTN Hold Home Meds due to low BP Hx of Depression/Insomnia/Psych Duloxetine 20mg PO Daily Trazodone 200mg HS BERNIE Clonazepam 0.5mg HS (Held, Patient can sleep without it) GI/DVT Proph Protonix 40mg PO daily SCDs Plan discussed with Dr Fredy Whyte DO PGY-2
[2018-12-20 09:53] LABS: ALB/GLOB RATIO 1.4 (1.0-2.1); ALT/SGPT 18 U/L (9-52); AST/SGOT 25 U/L (14-36); BLOOD UREA NITROGEN 7 mg/dL (7-17); CALCIUM 9.3 mg/dl (8.6-10.4); GFR NON-AFRICAN AMERICAN > 60
[2018-12-20] MEDS: PrednisoLONE 1% Opht Susp(5 ml) OS SCH ×4 (10:19→21:56)
[2018-12-20] MEDS: Pantoprazole 40 mg EC Tab PO SCH (10:19)
[2018-12-20] MEDS: Psyllium Packet PO SCH ×3 (10:19→19:00)
[2018-12-20] MEDS: Tramadol 25 mg PO PRN (10:29)
--- NOTE | 2018-12-20 11:16 | US ---
Date of service: 12/20/2018 PROCEDURE: Ultrasound of the Kidneys HISTORY: Difficulty URinating COMPARISON: None available. TECHNIQUE: Sonogram of the kidneys. FINDINGS: RIGHT KIDNEY: Measures: 10.8 x 4.1 x 5.1 cm. Normal in size, contour and echogenicity. No stone, solid mass lesion or hydronephrosis visualized. LEFT KIDNEY: Measures: 10.7 x 4.7 x 4.7 cm. Normal in size, contour and echogenicity. No stone, solid mass lesion or hydronephrosis visualized. OTHER FINDINGS: The prevoid bladder measures 6.3 x 6.6 x 8.3 centimeter with a total volume of 182 mL. The patient could not void therefore cannot calculated postvoid residual. IMPRESSION: Unremarkable renal sonogram.
--- NOTE | 2018-12-20 14:01 | CP.PCM.PN ---
<Gabriela Johnston - Last Filed: 12/20/18 15:17> Subjective - Date & Time of Evaluation Date of Evaluation: 12/20/18 Time of Evaluation: 13:55 - Subjective Subjective: Gastroenterology Fellow/PGY6 Progress Note Patient resting comfortably. Tolerating liquids and had half a banana this morning. States she doesn't have much of an appetite. No bowel movement since admission. Notes resolved abdominal pain. Admits to intermittent nausea. A 12- point review of systems negative except for as above. Nursing notes rapid response last night due to unresponsive to verbal and physical stimuli leading to CT head along with Narcan and D50 administration. Objective - Vital Signs/Intake and Output Vital Signs (last 24 hours): Temp Pulse Resp BP Pulse Ox 98 F 73 20 101/62 97 12/20/18 08:45 12/20/18 08:45 12/20/18 08:45 12/20/18 08:45 12/20/18 08:45 Intake and Output: 12/20/18 12/20/18 06:59 18:59 Intake Total 1000 Output Total 550 Balance 450 - Medications Medications: Current Medications Acetaminophen (Tylenol 325mg Tab) 650 mg PO Q4H PRN PRN Reason: Fever >100.4 F Dextrose (Dextrose 50% Inj) 0 ml IV STAT PRN; Protocol PRN Reason: Hypoglycemia Protocol Dextrose (Glutose 15) 0 gm PO ONCE PRN; Protocol PRN Reason: Hypoglycemia Protocol Duloxetine HCl (Cymbalta) 20 mg PO DAILY [facility] Last Admin: 12/20/18 10:19 Dose: 20 mg Fluconazole (Diflucan) 200 mg PO QWK [facility]; Protocol Fluticasone/Vilanterol (Breo Ellipta 100-25 Mcg Inh) 1 puff INH RQD [facility] Last Admin: 12/20/18 08:20 Dose: 1 puff Gabapentin (Neurontin) 300 mg PO BID [facility] Last Admin: 12/20/18 10:19 Dose: 300 mg Glucagon (Glucagen Diagnostic Kit) 0 mg IM STAT PRN; Protocol PRN Reason: Hypoglycemia Protocol Home Med (Adalimumab [Humira]) 40 mg SC QWK [facility] Sodium Chloride (Sodium Chloride 0.9%) 1,000 mls @ 100 mls/hr IV .Q10H [facility] Last Admin: 12/20/18 04:37 Dose: Not Given Dextrose (Dextrose 5% In Water 1000 Ml) 1,000 mls @ 0 mls/hr IV .Q0M PRN; Protocol PRN Reason: Hypoglycemia Protocol Losartan Potassium (Cozaar) 25 mg PO DAILY [facility] Last Admin: 12/19/18 09:47 Dose: Not Given Pantoprazole Sodium (Protonix Ec Tab) 40 mg PO DAILY [facility] Last Admin: 12/20/18 10:19 Dose: 40 mg Prednisolone Acetate (Pred Forte 1% Opht Susp) 0 ml OS QID [facility] Last Admin: 12/20/18 13:54 Dose: 1 drop Prochlorperazine (Compazine Tab) 5 mg PO TID PRN Last Admin: 12/20/18 11:30 Dose: 5 mg Psyllium Hydrophilic Mucilloid (Hydrocil Instant) 1 pkt PO BID [facility] Last Admin: 12/20/18 10:19 Dose: Not Given Tiotropium [place] (Spiriva) 18 mcg INH RQD [facility] Last Admin: 12/20/18 08:20 Dose: 18 mcg Tramadol HCl (Ultram) 25 mg PO TID PRN PRN Reason: Pain Mild-Severe (1-10) Last Admin: 12/20/18 10:29 Dose: 25 mg Trazodone HCl (Desyrel) 200 mg PO HS [facility] Last Admin: 12/19/18 22:46 Dose: Not Given - Labs Labs: 12/19/18 22:44 12/20/18 09:35 - Constitutional Appears: Non-toxic, No Acute Distress - Head Exam Head Exam: ATRAUMATIC, NORMOCEPHALIC - Eye Exam Eye Exam: EOMI, PERRL. absent: Scleral icterus Pupil Exam: PERRL. absent: Miosis, Mydriatic - ENT Exam ENT Exam: Mucous Membranes Moist, Normal Oropharynx - Neck Exam Neck Exam: Full ROM, Normal Inspection - Respiratory Exam Respiratory Exam: Clear to Ausculation Bilateral. absent: Rales, Rhonchi, Wheezes - Cardiovascular Exam Cardiovascular Exam: RRR, +S1, +S2. absent: Gallop, Rubs - GI/Abdominal Exam GI & Abdominal Exam: Soft, Normal Bowel Sounds. absent: Distended, Firm, Guarding, Rigid, Tenderness, Organomegaly, Rebound - Extremities Exam Extremities Exam: Normal Inspection. absent: Pedal Edema - Neurological Exam Neurological Exam: Alert, Awake - Psychiatric Exam Psychiatric exam: Normal Affect, Normal Mood - Skin Skin Exam: Dry, Intact, Normal Color, Warm Assessment and Plan - Assessment and Plan (Free Text) Assessment: 23 year old female with PMH of Crohn's ileitis on Humira diagnosed 2013 (started 07/2017, missed last dose 12/15/18), 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 CT A/P IV contrast showing constipation and possible thickening of stomach and transverse colon versus under-distension with lack of oral contrast. EGD 09/15/18 - normal esophagus, H. pylori negative gastritis, normal duodenum Colonoscopy for FMT 04/13/18 - TI normal- biopsy with no inflammation, small superficial anal fissure, entire colon normal endoscopically Capsule endoscopy 07/07/18 normal. Flexible sigmoidoscopy 09/05/18 -patchy rectal erythema- likely enema induced- negative for inflammation/dysplasia on sigmoid/rectal biopsies - started on mesalamine enemas with bowel movement improved to one daily stool in 08/2018. 05/15/18 and 08/31/18 fecal calprotection <27.1 Plan: -low suspicion for infectious diarrhea, symptoms likely due to IBS-mixed -off cipro and flagyl almost 24 hours -remains afebrile, normal labs -ESR 38, CRP <5 -hemodynamically stable -no bowel movement since admission to obtain pending Cdiff, stool culture, O&P -tolerating solid foods without vomiting or abdominal pain -continue Metamucil with constipation noted on CT A/P -continue PPI ACB and Compazine PRN -okay to discharge from GI standpoint once regular bland diet tolerated -will benefit from outpatient follow up with established IBD specialist- Dr. Chaney at [place] to evaluate possible discontinuation of Humira -will benefit form outpatient follow up with Dr. Potts for re-evaluation of symptoms and further treatment of possible underlying IBS <Nancy Potts - Last Filed: 12/20/18 18:26> Objective - Vital Signs/Intake and Output Vital Signs (last 24 hours): Temp Pulse Resp BP Pulse Ox 98.9 F 72 20 121/74 97 12/20/18 15:00 12/20/18 15:00 12/20/18 15:00 12/20/18 15:00 12/20/18 15:57 Intake and Output: 12/20/18 12/20/18 06:59 18:59 Intake Total 1000 500 Output Total 550 550 Balance 450 -50 - Medications Medications: Current Medications Acetaminophen (Tylenol 325mg Tab) 650 mg PO Q4H PRN PRN Reason: Fever >100.4 F Dextrose (Dextrose 50% Inj) 0 ml IV STAT PRN; Protocol PRN Reason: Hypoglycemia Protocol Dextrose (Glutose 15) 0 gm PO ONCE PRN; Protocol PRN Reason: Hypoglycemia Protocol Duloxetine HCl (Cymbalta) 20 mg PO DAILY [facility] Last Admin: 12/20/18 10:19 Dose: 20 mg Fluconazole (Diflucan) 200 mg PO QWK [facility]; Protocol Fluticasone/Vilanterol (Breo Ellipta 100-25 Mcg Inh) 1 puff INH RQD [facility] Last Admin: 12/20/18 08:20 Dose: 1 puff Gabapentin (Neurontin) 300 mg PO BID [facility] Last Admin: 12/20/18 18:05 Dose: 300 mg Glucagon (Glucagen Diagnostic Kit) 0 mg IM STAT PRN; Protocol PRN Reason: Hypoglycemia Protocol Home Med (Adalimumab [Humira]) 40 mg SC QWK [facility] Sodium Chloride (Sodium Chloride 0.9%) 1,000 mls @ 100 mls/hr IV .Q10H [facility] Last Admin: 12/20/18 14:36 Dose: Not Given Dextrose (Dextrose 5% In Water 1000 Ml) 1,000 mls @ 0 mls/hr IV .Q0M PRN; Protocol PRN Reason: Hypoglycemia Protocol Losartan Potassium (Cozaar) 25 mg PO DAILY [facility] Last Admin: 12/19/18 09:47 Dose: Not Given Pantoprazole Sodium (Protonix Ec Tab) 40 mg PO DAILY [facility] Last Admin: 12/20/18 10:19 Dose: 40 mg Prednisolone Acetate (Pred Forte 1% Opht Susp) 0 ml OS QID [facility] Last Admin: 12/20/18 18:05 Dose: 1 drop Prochlorperazine (Compazine Tab) 5 mg PO TID PRN Last Admin: 12/20/18 11:30 Dose: 5 mg Psyllium Hydrophilic Mucilloid (Hydrocil Instant) 1 pkt PO BID [facility] Last Admin: 12/20/18 10:19 Dose: Not Given Tiotropium [place] (Spiriva) 18 mcg INH RQD [facility] Last Admin: 12/20/18 08:20 Dose: 18 mcg Tramadol HCl (Ultram) 25 mg PO TID PRN PRN Reason: Pain Mild-Severe (1-10) Last Admin: 12/20/18 10:29 Dose: 25 mg Trazodone HCl (Desyrel) 200 mg PO HS [facility] Last Admin: 12/19/18 22:46 Dose: Not Given - Labs Labs: 12/19/18 22:44 12/20/18 09:35 Attending/Attestation - Attestation I have personally seen and examined this patient.: Yes I have fully participated in the care of the patient.: Yes I have reviewed all pertinent clinical information, including history, physical exam and plan: Yes Notes (Text): 12/20/18 18:25 I have seen and examined the pt with the GI fellow. 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 Recent visit to [place]. Saw PMD last wk with complaints of fever and had blood cultures and bloodwork done, presumably negative. No fevers here. Started on cipro/flagyl. Had CT abd/pelvis done here which showed some residual stool, but otherwise unremarkable. Had JUNIOR GRAPHIC DESIGNER overnight as she was unresponsive, CT head negative. Did not eat solid foods, only some liquids which she states made her nauseous. No diarrhea overnight. Abd: soft, nt,nd Plan: -suspect pt's sxs are more IBS rather than true IBD (extensive IBD w/u done in the past has been scattered over multiple hospitals and w/o definitive pathology, though at one point initiation of Humira did alleviate her sxs) -would d/c cipro/flagyl -advance diet -have advised her to document stools -if with repeated diarrhea, check stool cxs, c. diff -start metamucil daily (pt tried cholestyramine and stated it made her nauseous) -NO narcotics -tramadol only -stable for d/c from GI standpoint as long as she tolerates diet
[2018-12-21] MEDS: Sodium Chloride 0.9% 1,000 ML IV SCH ×2 (03:30)
[2018-12-21 05:16] LABS: SQUAMOUS EPITHIAL < 1 /hpf (0-5); URINE BACTERIA RARE (<OCC); URINE BILIRUBIN NEGATIVE (NEGATIVE); URINE BLOOD NEGATIVE (NEGATIVE); URINE CLARITY Clear (Clear); URINE COLOR Yellow (YELLOW); URINE GLUCOSE (UA) NORMAL (Normal); URINE LEUKOCYTE ESTERASE NEG Leu/uL (Negative); URINE PROTEIN NEGATIVE (NEGATIVE); URINE UROBILINOGEN NORMAL mg/dL (0.2-1.0)
[2018-12-21] MEDS: Fluticasone-Vilanterol 100/25mcg Diskus INH SCH (07:50)
[2018-12-21] MEDS: Tiotropium 18 mcg Cap For Inhalation INH SCH (07:50)
[2018-12-21 07:57] VITALS: BP 112/68; PULSE 66; TEMP 98.1; O2SAT 97
--- NOTE | 2018-12-21 08:19 | PCM.URO ---
Urology Progress Note - Objective Lab Studies: Reviewed (full note to be dictated plans to be discussed thank you for gu consult) Lab Results Last 24 Hours: Laboratory Results - last 24 hr 12/20/18 12/21/18 12/21/18 09:35 05:10 06:45 Sodium 138 Potassium 4.0 Chloride 106 Carbon Dioxide 22 Anion Gap 14 BUN 7 Creatinine 0.6 L Est GFR ( Amer) > 60 Est GFR (Non-Af Amer) > 60 POC Glucose (mg/dL) 94 Random Glucose 84 Calcium 9.3 Total Bilirubin 0.5 AST 25 ALT 18 Alkaline Phosphatase 43 Total Protein 6.8 Albumin 4.0 Globulin 2.8 Albumin/Globulin Ratio 1.4 Urine Color Yellow Urine Clarity Clear Urine pH 7.0 Ur Specific [place] 1.006 Urine Protein Negative Urine Glucose (UA) Normal Urine Ketones Negative Urine Blood Negative Urine Nitrate Negative Urine Bilirubin Negative Urine Urobilinogen Normal Ur Leukocyte Esterase Neg Urine WBC (Auto) 1 Ur Squamous Epith Cells < 1 Urine Bacteria Rare Intake & Output: Intake & Output 12/20/18 12/21/18 12/21/18 18:59 06:59 18:59 Intake Total 500 1730 Output Total 550 800 Balance -50 930 Intake: Intake, IV Amount 500 1600 Right Forearm 500 1600 Oral 130 Output: Urine 550 800 Straight 400 Other: # Voids Urine, Voided 0 # Bowel Movements 0 0 Vital Signs: Vital Signs - 24 hr 12/20/18 12/20/18 12/20/18 08:30 08:45 15:00 Temperature 98 F 98.9 F Pulse Rate 73 73 72 Respiratory 20 20 Rate Blood Pressure 101/62 121/74 O2 Sat by Pulse 97 98 Oximetry 12/20/18 12/20/18 12/20/18 15:57 20:49 23:00 Temperature 98.5 F Pulse Rate 75 Respiratory 20 Rate Blood Pressure 96/56 L O2 Sat by Pulse 97 97 95 Oximetry 12/21/18 07:56 Temperature 98.1 F Pulse Rate 66 Respiratory 20 Rate Blood Pressure 112/68 O2 Sat by Pulse 97 Oximetry
[2018-12-21] MEDS: PrednisoLONE 1% Opht Susp(5 ml) OS SCH ×2 (10:17→14:33)
[2018-12-21] MEDS: Pantoprazole 40 mg EC Tab PO SCH (10:17)
[2018-12-21] MEDS: Psyllium Packet PO SCH (10:19)
--- NOTE | 2018-12-21 11:08 | US ---
Date of service: 12/21/2018 PROCEDURE: Ultrasound of the Bladder HISTORY: R/O Stone or any Obstruction. COMPARISON: None available. TECHNIQUE: Sonographic evaluation of the bladder was performed. FINDINGS: Unremarkable without wall thickening or intraluminal debris. No calculus identified. No free fluid in pelvis. Prevoid Volume: 390.9 cc. Patient unable to void. The right ureteral jet is identified. The left ureteral jet is not identified. IMPRESSION: Prevoid volume: 390.9 cc Patient unable to void. The right ureteral jet is identified. The left ureteral jet is not seen.
--- NOTE | 2018-12-21 11:45 | CP.PCM.PN ---
Subjective - Date & Time of Evaluation Date of Evaluation: 12/21/18 Time of Evaluation: 11:00 - Subjective Subjective: Patient seen and examined at bedside. No overnight events reported. No complaints of diarrhea. Patient states she still has trouble urinating. Denies any fevers, chills. Abdominal pain is about the same. Denies any SOB. Objective - Vital Signs/Intake and Output Vital Signs (last 24 hours): Temp Pulse Resp BP Pulse Ox 98.1 F 66 20 112/68 97 12/21/18 07:56 12/21/18 07:56 12/21/18 07:56 12/21/18 07:56 12/21/18 07:56 Intake and Output: 12/21/18 12/21/18 06:59 18:59 Intake Total 1730 Output Total 800 Balance 930 - Medications Medications: Current Medications Acetaminophen (Tylenol 325mg Tab) 650 mg PO Q4H PRN PRN Reason: Fever >100.4 F Dextrose (Dextrose 50% Inj) 0 ml IV STAT PRN; Protocol PRN Reason: Hypoglycemia Protocol Dextrose (Glutose 15) 0 gm PO ONCE PRN; Protocol PRN Reason: Hypoglycemia Protocol Duloxetine HCl (Cymbalta) 20 mg PO DAILY [facility] Last Admin: 12/21/18 10:18 Dose: 20 mg Fluconazole (Diflucan) 200 mg PO QWK [facility]; Protocol Fluticasone/Vilanterol (Breo Ellipta 100-25 Mcg Inh) 1 puff INH RQD [facility] Last Admin: 12/21/18 07:50 Dose: 1 puff Gabapentin (Neurontin) 300 mg PO BID [facility] Last Admin: 12/21/18 10:17 Dose: 300 mg Glucagon (Glucagen Diagnostic Kit) 0 mg IM STAT PRN; Protocol PRN Reason: Hypoglycemia Protocol Home Med (Adalimumab [Humira]) 40 mg SC QWK [facility] Dextrose (Dextrose 5% In Water 1000 Ml) 1,000 mls @ 0 mls/hr IV .Q0M PRN; Protocol PRN Reason: Hypoglycemia Protocol Losartan Potassium (Cozaar) 25 mg PO DAILY [facility] Last Admin: 12/19/18 09:47 Dose: Not Given Pantoprazole Sodium (Protonix Ec Tab) 40 mg PO DAILY [facility] Last Admin: 12/21/18 10:17 Dose: 40 mg Prednisolone Acetate (Pred Forte 1% Opht Susp) 0 ml OS QID [facility] Last Admin: 12/21/18 10:17 Dose: 1 drop Prochlorperazine (Compazine Tab) 5 mg PO TID PRN PRN Reason: Nausea/Vomiting Last Admin: 12/21/18 10:18 Dose: 5 mg Psyllium Hydrophilic Mucilloid (Hydrocil Instant) 1 pkt PO BID [facility] Last Admin: 12/21/18 10:19 Dose: Not Given Tamsulosin HCl (Flomax) 0.4 mg PO DAILY [facility] Last Admin: 12/21/18 10:29 Dose: 0.4 mg Tiotropium [place] (Spiriva) 18 mcg INH RQD [facility] Last Admin: 12/21/18 07:50 Dose: 18 mcg Tramadol HCl (Ultram) 25 mg PO TID PRN PRN Reason: Pain Mild-Severe (1-10) Last Admin: 12/20/18 10:29 Dose: 25 mg Trazodone HCl (Desyrel) 200 mg PO HS [facility] Last Admin: 12/20/18 21:56 Dose: 200 mg - Labs Labs: 12/19/18 22:44 12/20/18 09:35 - Additional Findings Additional findings: - Additional Findings Additional findings: - Constitutional Appears: Non-toxic, No Acute Distress - Head Exam Head Exam: ATRAUMATIC, NORMOCEPHALIC - Eye Exam Eye Exam: EOMI, PERRL. absent: Scleral icterus Pupil Exam: PERRL. absent: Miosis, Mydriatic - ENT Exam ENT Exam: Mucous Membranes Moist, Normal Oropharynx - Neck Exam Neck Exam: Full ROM, Normal Inspection - Respiratory Exam Respiratory Exam: Clear to Ausculation Bilateral. absent: Rales, Rhonchi, Wheezes - Cardiovascular Exam Cardiovascular Exam: RRR, +S1, +S2. absent: Gallop, Rubs - GI/Abdominal Exam GI & Abdominal Exam: Soft, Normal Bowel Sounds. absent: Distended, Firm, Guarding, Rigid, Tenderness, Organomegaly, Rebound - Extremities Exam Extremities Exam: Normal Inspection. 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 Plan: Diarrhea/Abd Pain/Fevers/Crohns Patient likely with IBS Antibiotics discontinued Continue NS @ 100mls/hr Compazine 5mg PO TID PRN Hydrocil Instant 1 pkt BID Humira [id number](On Tuesday) and Diflucan 200mg QFridays Stool studies ordered, patient has not had a bowel movement since admission Tramadol 25mg PO TID PRN (Avoid heavy narcotics) GI on consult, help appreciated, Patient to follow up as O.P Blood in Stool Patient stated she noticed Bright Red Blood in stool Has not had a bowel movement since admission Monitor H/H Difficult Urinating Renal/Bladder US - Unremarkable renal sonogram Patient was straight cath yesterday Bladder scan prn Asthma (Chronic) Symbicort Not in Formulary, start BreoElipta 1 puff Daily Spiriva 18mcg RQD Uveitis Pred Forte OS QID HTN Hold Home Meds due to low BP Hx of Depression/Insomnia/Psych Duloxetine 20mg PO Daily Trazodone 200mg HS [facility] Clonazepam 0.5mg HS (Held, Patient can sleep without it) GI/DVT Proph Protonix 40mg PO daily SCDs Dispo: Patient to be discharged today. Patient will be taught how to Straight Cath and given supplies. She to follow up with Dr. Hale regarding her urinary retention. SHe is to also follow up with her PMD, GI, and her pain management physician. I believe patient will also benefit from a psych evaluation. Plan discussed with Dr Fredy Oquendo, DO PGY-2
== END 2018-12-21 15:34 | disposition home or self-care (01) ==
LOC: C.ER 18:31 → C.9E 23:52 → C.5S 12-19 07:28
PROVIDERS: ADMIT Internal Medicine Pulmonary Disease; ATTEND Internal Medicine Pulmonary Disease
DX: K58.9 Irritable bowel syndrome, unspecified (principal); J45.909 Unspecified asthma, uncomplicated; H20.9 Unspecified iridocyclitis; I10 Essential (primary) hypertension; R33.9 Retention of urine, unspecified; G40.909 Epilepsy, unspecified, not intractable, without status epilepticus; K50.00 Crohn's disease of small intestine without complications; H46.9 Unspecified optic neuritis; Z91.19 Patient's noncompliance with other medical treatment and regimen
CPT/HCPCS: 36415; 70450; 71046; 74177; 76770; 76856; 76857; 80053; 81001; 82803; 82948; 83690; 83735; 84100; 84702; 85025; 85651; 86140; 87040; 87086; 94640; 96365; 96366; 96367; 96375; 96376; 99285; G0378; J0744; J1170; J2270; J2310; J7030; J7070; Q0164; Q9967